=== PATIENT | female | born 1945 | race Hispanic/Latino ===

== ENCOUNTER 2018-02-07 12:47 | Emergency (ER) | payer MEDICARE, OTHER ==
[2018-02-07 12:48] VITALS: PULSE 58
[2018-02-07 13:03] VITALS: BMI 23.3
[2018-02-07 13:05] VITALS: BP 147/47; PULSE 73; RESP 18; TEMP 98.3; O2SAT 99
--- NOTE | 2018-02-07 15:21 | C.PDOC ---
History Of Present Illness 72 year old female presents to ED for psych evaluation for depression. Pt states she recently lost her sister and has been feeling depressed since the incident. Denies SI/HI, or hearing voices. Pt states she is here for referral to see a psychiatrist. Denies any other active physical complaints. Time Seen by Provider: 02/07/18 13:16 Chief Complaint (Nursing): Psychiatric Evaluation History Per: Patient History/Exam Limitations: no limitations Onset/Duration Of Symptoms: Days Current Symptoms Are (Timing): Still Present Suicide/Self Injury Attempted (Context): None Modifying Factor(s): None Severity: None Pain Scale Rating Of: 0 Associated Symptoms: Depression. denies: Suicidal Thoughts, Suicidal Plan Involuntary Hold By: None Recent travel outside of the [place]: No Additional History Per: Patient Past Medical History Reviewed: Historical Data, Nursing Documentation, Vital Signs Vital Signs: Last Vital Signs Temp 98.3 F 02/07/18 13:03 Pulse 73 02/07/18 13:03 Resp 18 02/07/18 13:03 BP 147/47 L 02/07/18 13:03 Pulse Ox 99 02/07/18 15:35 - Medical History PMH: Anxiety, Atrial Fibrillation, Depression, HTN Denies: Bipolar Disorder, Diabetes, Hepatitis, HIV, Personality Disorder, Chronic Kidney Disease, Schizophrenia, Seizures, Sexually Transmitted Disease - [facility] Procedures INJECT/INFUSE NEC (03/29/14) Family History: States: Unknown Family Hx, Hypertension - Social History Hx Alcohol Use: No Hx Substance Use: No Review Of Systems Except As Marked, All Systems Reviewed And Found Negative. Constitutional: Negative for: Fever, Chills Cardiovascular: Negative for: Chest Pain, Palpitations Respiratory: Negative for: Shortness of Breath Psych: Positive for: Depression. Negative for: Suicidal ideation Physical Exam - Physical Exam Appears: Non-toxic, No Acute Distress Skin: Normal Color, Warm, Dry Head: Atraumatic, Normacephalic Eye(s): bilateral: Normal Inspection Oral Mucosa: Moist Cardiovascular: Rhythm Regular Respiratory: Normal Breath Sounds, No Rales, No Rhonchi, No Wheezing Extremity: Normal ROM Neurological/Psych: Oriented x3, Normal Speech ED Course And Treatment O2 Sat by Pulse Oximetry: 99 (RA) Pulse Ox Interpretation: Normal Medical Decision Making Medical Decision Making: Plan: Blood work Urinalysis Crisis was notified, and will speak to patient. Upon crisis arrival, pt had eloped from the department. dietary worker states she will call the patient at home, and will arrange an appointment with Dr. Hendrix for 4:00pm today. Disposition - Disposition Disposition: ELOPEMENT - ER ONLY Disposition Time: 17:00 Condition: GOOD Forms: [facility] (Yakut) - Clinical Impression Clinical Impression: Depression - Scribe Statement The provider has reviewed the documentation as recorded by the Scribe Di Bains All medical record entries made by the Denniseibe were at my direction and personally dictated by me. I have reviewed the chart and agree that the record accurately reflects my personal performance of the history, physical exam, medical decision making, and the department course for this patient. I have also personally directed, reviewed, and agree with the discharge instructions and disposition.
== END 2018-02-07 14:51 | disposition left against medical advice (07) ==
LOC: C.ER 12:47
DX: F32.9 Major depressive disorder, single episode, unspecified (principal); I10 Essential (primary) hypertension; I48.91 Unspecified atrial fibrillation